=== PATIENT | female | born 2000 | race Asian ===

== ENCOUNTER 2018-07-29 16:43 | Emergency (ER) | payer OTHER ==
[~2018-07-29] VITALS: Ht 172.7 cm; Wt 90.0 kg
[2018-07-29] MEDS ORDERED: ESCI10TA10 PO (16:58)
--- NOTE | 2018-07-29 17:10 | NUR ---
PTS BELONGINGS COLLECTED (2 BAGS) AND PLACED IN LOCKER. PT ABLE TO PROVIDE RN WITH A URINE SAMPLE. COLLECTED AND WALKED TO LAB. SITTER OUTSIDE OF ROOM MONITORING PT.
--- NOTE | 2018-07-29 17:14 | NUR ---
RAMSEY AT BEDSIDE EVALUATING PT. TO PLACE PT ON LEGAL HOLD. RAMSEY ASKED RN TO CALL [employer] TO OBTAIN RECOMMENDATIONS. RN OBTAINED NUMBER FOR [employer] .
--- NOTE | 2018-07-29 17:17 | NUR ---
RN OBTAINED RECOMMENDATION FROM [employer]. RN TO INFORM ERMD. PT'S .
[2018-07-29] MEDS ORDERED: SODIUM CHLORIDE FLUSH 10ML SYR IVF ONE (17:30)
[2018-07-29 17:31] LABS: BASOPHILS # (AUTO) 0.02 x10^3/uL (0-0.3); BASOPHILS % (AUTO) 0 % (0-1); EOSINOPHILS # (AUTO) 0.04 x10^3/uL (0-0.8); EOSINOPHILS % (AUTO) 1 % (1-7); LYMPHOCYTES # (AUTO) 1.66 x10^3/uL (1-6.1); LYMPHOCYTES % (AUTO) 23 % (22-44); MD NO; MEAN CORPUSCULAR HGB CONC 33.8 g/dL (32.4-35.8); MEAN CORPUSCULAR VOLUME 85.7 fL (80-100); MEAN PLATELET VOLUME 9.1 fL (7.4-10.4); MONOCYTES # (AUTO) 0.53 x10^3/uL (0-1.4); MONOCYTES % (AUTO) 7 % (2-9); NEUTROPHILS # (AUTO) 4.96 x10^3/uL (1.8-8.0); NEUTROPHILS % (AUTO) 69 % (42-75); PLATELET COUNT 293 x10^3/uL (130-400); RED BLOOD COUNT 4.85 x10^6/uL (3.82-5.3); RED CELL DISTRIBUTION WIDTH 14.6 % (9.6-15.2)
[2018-07-29 17:33] LABS: MICROSCOPIC NOT IND
[2018-07-29 17:38] LABS: CULTURE INDICATED? NO
--- NOTE | 2018-07-29 17:38 | NUR ---
RN REPORTED TO ERMD FINDINGS FROM [employer].
[2018-07-29 17:41] LABS: ALANINE AMINOTRANSFERASE 139 U/L (12-78); ALBUMIN 4.4 g/dL (3.4-5.0); ANION GAP 9 mmol/L (5-15); CALCIUM 9.1 mg/dL (8.5-10.1); CHLORIDE 106 mmol/L (98-107); CREATININE 0.73 mg/dL (0.55-1.02)
[2018-07-29 17:45] LABS: AMPHETAMINE SCREEN, URINE Negative (Negative); BARBITURATE SCREEN, URINE Negative (Negative); BENZODIAZEPINE SCREEN, URINE Negative (Negative); CANNABINOID SCREEN, URINE Negative (Negative); COCAINE SCREEN, URINE Negative (Negative); METHADONE SCREEN, URINE Negative (Negative); OPIATE SCREEN, URINE Negative (Negative)
[2018-07-29 17:46] LABS: ALKALINE PHOSPHATASE 69 U/L (45-117); BILIRUBIN,TOTAL 0.7 mg/dL (0.2-1.0); TOTAL PROTEIN 8.7 g/dL (6.4-8.2)
[2018-07-29 17:51] LABS: ACETAMINOPHEN < 2 mcg/mL (10-30); SALICYLATE LEVEL < 1.7 mg/dL (2.8-20.0)
--- NOTE | 2018-07-29 18:15 | NUR ---
VISITORS AT BEDSIDE. DINNER DELIVERED TO PT.
--- NOTE | 2018-07-29 18:53 | NUR ---
REPORT TO GABBI PERAZA.
--- NOTE | 2018-07-29 20:09 | NUR ---
PT HAS VISITORS AT BEDSIDE. VSS. UPDATED ON POC.
--- NOTE | 2018-07-29 21:58 | NUR ---
DC'D IV WITH TIP INTACT. PT SITTING UP TALKING AND LAUGHING WITH FRIENDS.
--- NOTE | 2018-07-29 22:13 | NUR ---
ERASMO RN: PACKET FAXED TO [facility], [facility], AND [facility]
--- NOTE | 2018-07-29 22:44 | NUR ---
SBAR report received from RN, Clementine. Pt sitting on gurney, with friends at bedside. Sitter outside of room for pt safety.
--- NOTE | 2018-07-29 23:05 | NUR ---
TP RN: CALLED [facility], THEY STATE THE PT'S CHART IS IN REVIEW AND THEY WILL CALL BACK WHEN THEY KNOW IF SHE CAN BE ACCEPTED OR NOT
--- NOTE | 2018-07-29 23:28 | NUR ---
Pt sitting up on gurney, eating snacks. Pt's friends are now going home and requested to have pt's keys removed from belonging bag. This RN confirmed with pt that friends may take keys, ok with pt. Pt's keys removed from belonging bag, all other belongings replaced in bag and 2 bags placed in locked cabinet. Pt states that she is feeling "much better" than when she came in. Pt remains on systems administration analyst, NSR noted.
--- NOTE | 2018-07-29 23:45 | NUR ---
TP RN: [facility] CALLED AND STATED SINCE THE PT TOOK [place] AND THE HALF LIFE IS OVER 24 HOURS, THEY WILL BE REASSESSING TOMORROW
--- NOTE | 2018-07-29 23:50 | NUR ---
TP RN: CALLED [facility], THEY STATE THEY DON'T HAVE SOMEONE ON AT NIGHT TO REVIEW THE PACKETS. WILL HAVE TO CALL BACK TOMORROW.
--- NOTE | 2018-07-30 00:09 | NUR ---
Pt sleeping on gurney, remains on all monitors, VSS. Sitter outside of room for pt safety.
--- NOTE | 2018-07-30 01:41 | NUR ---
Pt resting on gurney, remains on site monitor, NSR noted. Sitter outside of room for pt safety.
--- NOTE | 2018-07-30 02:43 | NUR ---
Poison control called to follow up with pt's labwork and condition. Poison control states that they will be closing the case, as they would be expect to see changes within the first 6 hours and as she has been stable they do not need to check further. Poison control advised to call them with any questions/concerns if they arise.
--- NOTE | 2018-07-30 03:01 | NUR ---
Report given to [facility].
--- NOTE | 2018-07-30 03:03 | NUR ---
Received report from GABBI Mathias
[2018-07-30 04:58] LABS: BASOPHILS # (AUTO) 0.03 x10^3/uL (0-0.3); BASOPHILS % (AUTO) 0 % (0-1); EOSINOPHILS # (AUTO) 0.08 x10^3/uL (0-0.8); EOSINOPHILS % (AUTO) 1 % (1-7); LYMPHOCYTES # (AUTO) 3.14 x10^3/uL (1-6.1); LYMPHOCYTES % (AUTO) 30 % (22-44); MD NO; MEAN CORPUSCULAR HEMOGLOBIN 28.7 pg (27.0-34.8); MEAN CORPUSCULAR HGB CONC 33.8 g/dL (32.4-35.8); MEAN CORPUSCULAR VOLUME 84.9 fL (80-100); MONOCYTES # (AUTO) 0.99 x10^3/uL (0-1.4); MONOCYTES % (AUTO) 9 % (2-9); NEUTROPHILS # (AUTO) 6.34 x10^3/uL (1.8-8.0); NEUTROPHILS % (AUTO) 60 % (42-75); PLATELET COUNT 315 x10^3/uL (130-400); RED BLOOD COUNT 4.66 x10^6/uL (3.82-5.3); RED CELL DISTRIBUTION WIDTH 14.7 % (9.6-15.2)
[2018-07-30 05:10] LABS: ANION GAP 7 mmol/L (5-15); CALCIUM 9.6 mg/dL (8.5-10.1); CHLORIDE 107 mmol/L (98-107)
--- NOTE | 2018-07-30 05:11 | NUR ---
patient sleeping, respiration unlabored.
[2018-07-30 05:21] LABS: CREATININE 0.57 mg/dL (0.55-1.02)
--- NOTE | 2018-07-30 07:00 | NUR ---
SBAR HAND-OFF REPORT RECEIVED FROM GABBI DREW. ASSUMING CARE OF PATIENT.
[2018-07-30 08:40] LABS: ALBUMIN 4.1 g/dL (3.4-5.0); BILIRUBIN, DIRECT 0.1 mg/dL (0.1-0.2)
[2018-07-30 08:42] LABS: BILIRUBIN,INDIRECT 0.3 mg/dL (0.0-2.0); BILIRUBIN,TOTAL 0.4 mg/dL (0.2-1.0); TOTAL PROTEIN 8.3 g/dL (6.4-8.2)
--- NOTE | 2018-07-30 09:29 | NUR ---
report received from Jimi. patient in bed, sitter outside.
--- NOTE | 2018-07-30 09:39 | NUR ---
SBAR TELEPHONE REPORT GIVEN TO GABBI COY AT [facility], INCLUDING MORNING LIVER ENZYME TESTS.
--- NOTE | 2018-07-30 09:47 | NUR ---
Updated vitals and labs faxed to [facility], [facility], [facility] and [facility].
--- NOTE | 2018-07-30 09:54 | NUR ---
ZBIGNIEW FROM [facility] CALLED, ACCEPTING PHYSICIAN DR KILLIAN. PHONE NUMBER FOR REPORT [phone]
--- NOTE | 2018-07-30 10:36 | NUR ---
CALLED [facility] AND ZBIGNIEW IS BUSY BUT WILL CALL BACK.
[2018-07-30 10:50] VITALS: BP 105/78
--- NOTE | 2018-07-30 10:52 | NUR ---
PATIENT TRANSPORT HERE TO [facility]. PATIENT IS CALM, AND UNDERSTANDS DISCHARGE FROM [facility] TO [facility] PLAN. SHE IS CALM, ACCEPTING AND READY. PATIENT D/C TEACHING REVIEWED. VSS. REPORT GIVEN TO ZBIGNIEW AT [facility] BY DARY PFEIFFER AND LEFT HER A MESSAGE TO CALL ME WITH ANY QUESTIONS.
== END 2018-07-30 10:55 | disposition other institution (70) ==
LOC: ED 20:06 → UNDOADMIN 20:07 → EDIP 20:07 → ED 07-30 10:55
DX: T43.221A Poisoning by selective serotonin reuptake inhibitors, accidental (unintentional), initial encounter (principal); F32.9 Major depressive disorder, single episode, unspecified; X58.XXXA Exposure to other specified factors, initial encounter; Y93.89 Activity, other specified; Y92.89 Other specified places as the place of occurrence of the external cause; Y99.8 Other external cause status
CPT/HCPCS: 36415; 80048; 80053; 80076; 80307; 80329; 81003; 84443; 84702; 85025; 93005; 99284; 99285; G0480